=== PATIENT | female | born 1995 | race Caucasian/White ===

== ENCOUNTER → 2017-04-13 | Outpatient (CLI) | payer BC ==
[~2017-04-13] MED LIST: ISOVUE-370 76% 100ML VIAL (Q9967) As Ordered ONE
--- NOTE | 2017-04-13 09:31 | REP ---
Soft tissue CT neck with IV contrast: History: Localized swelling or mass. Right-sided neck mass in the submandibular triangle. CT contrast dose: 75 ml of intravenous Isovue 370. CT findings: Submandibular and parotid glands are normal and symmetric. Thyroid lobes are symmetric and homogeneous. No vascular abnormality is observed. There is no evidence of neck mass or adenopathy. No periauricular mass lesion is seen. There is metallic jewelry noted incidentally in the right naris and in the left ear pinna. A normal size right suboccipital lymph node is seen measuring only 8 mm in greatest diameter. The largest anterior cervical lymph node on each side measures 8 mm in short axis dimension. There is no evidence of supraclavicular mass or adenopathy. The lung apices are clear. No bony destructive lesion is seen. Impression: Negative CT soft tissue neck study. There is no visible neck mass or adenopathy. Signed by Alec Velasquez MD 04/13/2017 04:13 P
== END ==
LOC: M RAD 08:10
PROVIDERS: ATTEND Otolaryngology
DX: R22.1 Localized swelling, mass and lump, neck (principal)
CPT/HCPCS: 70491; Q9967